=== PATIENT | female | born 1945 | race Native Hawaiian/Other Pacific Islander ===

== ENCOUNTER 2018-03-26 15:03 | Outpatient (CLI) | payer OTHER ==
[2018-03-26 15:57] LABS: PLATELET COUNT 324 K/uL (152-353)
[2018-03-26 16:01] LABS: POTASSIUM 4.2 mmol/L (3.6-5.2)
== END 2018-03-26 20:16 | disposition home or self-care (01) ==
LOC: LABW 15:03
PROVIDERS: Internal Medicine
DX: N18.3 Chronic kidney disease, stage 3 (moderate) (principal)
CPT/HCPCS: 36415; 80053; 82306; 82330; 83735; 83970; 84100; 85027

== ENCOUNTER 2018-03-27 10:58 | Outpatient (CLI) | payer OTHER | END 2018-03-27 19:49 | disposition home or self-care (01) | LOC: LAB 10:58 | DX: N18.3 Chronic kidney disease, stage 3 (moderate) (principal) | CPT/HCPCS: 81000; 82043; 82570; 84155 ==

== ENCOUNTER 2019-11-09 15:04 | Outpatient (CLI) | payer OTHER | END 2019-11-09 21:33 | disposition home or self-care (01) | LOC: US 15:04 | DX: M79.604 Pain in right leg (principal); R60.0 Localized edema ==

== ENCOUNTER 2021-03-22 08:37 | Outpatient (CLI) | payer OTHER | END 2021-03-22 18:56 | disposition home or self-care (01) | LOC: US 08:37 | PROVIDERS: ATTEND Internal Medicine | DX: R26.89 Other abnormalities of gait and mobility (principal); R42 Dizziness and giddiness ==

== ENCOUNTER 2021-04-26 13:04 | Outpatient (CLI) | payer OTHER | END 2021-04-26 18:56 | disposition home or self-care (01) | LOC: MRI 13:04 | PROVIDERS: ATTEND Neurological Surgery | DX: R41.3 Other amnesia (principal); G93.89 Other specified disorders of brain | CPT/HCPCS: 36415; 82565; 84520; A9576 ==

== ENCOUNTER 2021-10-17 19:19 | Emergency (ER) | payer OTHER ==
[~2021-10-17] VITALS: Ht 152.4 cm; Wt 55.3 kg
[2021-10-17 19:47] VITALS: TEMP 98.2
[2021-10-17 20:20] LABS: PLATELET COUNT 230 K/uL (152-353)
[2021-10-17 20:34] LABS: POTASSIUM 4.4 mmol/L (3.6-5.2)
[2021-10-17 21:42] VITALS: BP 170/64
== END 2021-10-17 21:42 | disposition home or self-care (01) ==
LOC: ED 19:19
PROVIDERS: Emergency Medicine
DX: E86.0 Dehydration (principal); K29.60 Other gastritis without bleeding
CPT/HCPCS: 36415; 80053; 84484; 85027; 93005; 96360; 96375; 99284; J2405

== ENCOUNTER 2021-11-13 12:47 | Emergency (ER) | payer OTHER ==
[~2021-11-13] VITALS: Ht 152.4 cm; Wt 55.3 kg
[2021-11-13 12:47] VITALS: BP 164/78; TEMP 97.9
[2021-11-13 13:18] LABS: PLATELET COUNT 211 K/uL (152-353)
[2021-11-13 13:26] LABS: POTASSIUM 3.5 mmol/L (3.6-5.2)
== END 2021-11-13 15:28 | disposition home or self-care (01) ==
LOC: ED 12:56
PROVIDERS: Emergency Medicine
DX: B34.9 Viral infection, unspecified (principal); U07.1 COVID-19; I25.10 Atherosclerotic heart disease of native coronary artery without angina pectoris; Z95.1 Presence of aortocoronary bypass graft
CPT/HCPCS: 80053; 84484; 85027; 85610; 87635; 93005; 99283; U0003

== ENCOUNTER 2021-11-22 15:13 | Emergency (ER) | payer OTHER ==
[~2021-11-22] VITALS: Ht 152.4 cm; Wt 55.3 kg
[2021-11-22 15:17] VITALS: TEMP 97.4
[2021-11-22 16:24] VITALS: BP 133/62
== END 2021-11-22 16:25 | disposition home or self-care (01) ==
LOC: ED 15:13
DX: S43.492A Other sprain of left shoulder joint, initial encounter (principal); W17.89XA Other fall from one level to another, initial encounter; Y93.89 Activity, other specified; Y92.012 Bathroom of single-family (private) house as the place of occurrence of the external cause; G30.9 Alzheimer's disease, unspecified; F02.80 Dementia in other diseases classified elsewhere, unspecified severity, without behavioral disturbance, psychotic disturbance, mood disturbance, and anxiety
CPT/HCPCS: 99282

== ENCOUNTER 2022-06-06 09:25 | Inpatient (IN) | payer OTHER | END 2022-06-19 08:56 | disposition still patient (30) | LOC: PAVB 09:25 | PROVIDERS: ADMIT Family Medicine; ATTEND Family Medicine | DX: S72.012D Unspecified intracapsular fracture of left femur, subsequent encounter for closed fracture with routine healing (principal); J18.9 Pneumonia, unspecified organism; J96.00 Acute respiratory failure, unspecified whether with hypoxia or hypercapnia; M62.81 Muscle weakness (generalized); R13.12 Dysphagia, oropharyngeal phase; R26.2 Difficulty in walking, not elsewhere classified; R48.8 Other symbolic dysfunctions; Z74.1 Need for assistance with personal care | CPT/HCPCS: 81000; 87081; G0283-GO ==

== ENCOUNTER 2022-11-27 09:47 | Outpatient (CLI) | payer OTHER | END 2022-11-27 20:24 | disposition home or self-care (01) | LOC: CT 09:47 | PROVIDERS: ATTEND Internal Medicine | DX: R10.31 Right lower quadrant pain (principal) | CPT/HCPCS: 36415; 82565; 84520; Q9963 ==